=== PATIENT | male | born 1980 | race African-American/Black ===

== ENCOUNTER 2019-06-04 20:56 | Emergency (ER) | payer SELFPAY ==
--- NOTE | 2019-06-04 21:40 | RAD ---
Left shoulder 3 views HISTORY: Left shoulder injury. FINDINGS: Left humeral head lies just anterior and into the inferior to the glenoid. No fracture frag ments evident. Acromioclavicular alignment is maintained. IMPRESSION: Left shoulder dislocation.
[2019-06-04] MEDS ORDERED: Ketamine 50 MG/ML (10ML VIAL) ONE (21:45)
[2019-06-04] MEDS ORDERED: Propofol 1,000 MG/100 ML VIAL IV ONE (22:32)
[2019-06-04] MEDS ORDERED: Lorazepam 2 MG/ML VIAL ONE (22:33)
[2019-06-05] MEDS ORDERED: Ondansetron PF 4 MG/2 ML Vial ONE (00:22)
== END 2019-06-05 00:26 | disposition short-term general hospital (02) ==
LOC: MADERS 20:56
DX: S43.005A Unspecified dislocation of left shoulder joint, initial encounter (principal); E11.9 Type 2 diabetes mellitus without complications; F41.9 Anxiety disorder, unspecified; F17.210 Nicotine dependence, cigarettes, uncomplicated; X58.XXXA Exposure to other specified factors, initial encounter
CPT/HCPCS: 96374; 96375; 99152; 99153; J2060; J2405; J2704